=== PATIENT | female | born 1985 | race Caucasian/White ===

== ENCOUNTER 2021-04-09 15:56 | Outpatient (CLI) | payer OTHER | END 2021-04-09 15:57 | disposition home or self-care (01) | LOC: DTY/OP 15:56 | PROVIDERS: ATTEND Surgery | DX: E66.01 Morbid (severe) obesity due to excess calories (principal) | CPT/HCPCS: 97802 ==

== ENCOUNTER 2021-09-05 09:37 | Outpatient (CLI) | payer OTHER | END 2021-09-05 09:38 | disposition home or self-care (01) | LOC: DTY/OP 09:37 | PROVIDERS: ATTEND Surgery | DX: E66.01 Morbid (severe) obesity due to excess calories (principal) | CPT/HCPCS: 97802 ==